=== PATIENT | male | born 1965 | race Caucasian/White ===

== ENCOUNTER 2018-02-17 01:59 | Emergency (ER) | payer SELFPAY ==
[2018-02-17 02:03] VITALS: TEMP 98.4
[2018-02-17] MEDS ORDERED: KETOROLAC 30 MG/ML 1 ML VIAL IVP STA (02:21)
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
[2018-02-17] MEDS ORDERED: DIPH,PERTUS(ACELL)TETVAC-LF 0.5 ML VIAL IM ONE (03:33)
[2018-02-17 04:49] VITALS: BP 162/78; PULSE 83; RESP 17
== END 2018-02-17 05:12 | disposition home or self-care (01) ==
LOC: EC 01:59
DX: T23.251A Burn of second degree of right palm, initial encounter (principal); T23.221A Burn of second degree of single right finger (nail) except thumb, initial encounter; Z23 Encounter for immunization; X19.XXXA Contact with other heat and hot substances, initial encounter; Y92.009 Unspecified place in unspecified non-institutional (private) residence as the place of occurrence of the external cause
CPT/HCPCS: 99284; 16020; 96374; 90471; 82075; 90715; J1885

== ENCOUNTER 2021-12-29 09:27 | Day surgery (SDC) | payer OTHER ==
[2021-11-08 17:00] VITALS: BMI 30.7
[~2021-12-29 09:27] MED LIST: LACTATED RINGERS 1,000 ML IV SCH
[2021-12-29 09:48] VITALS: RESP 16; TEMP 97.5
[2021-12-29] MEDS ORDERED: fentaNYL (PF) 50 MCG/ML 2 ML AMP ONE (10:03)
[2021-12-29] MEDS ORDERED: PROPOFOL 10 MG/ML 20 ML VIAL IV ONE (10:03)
[2021-12-29] MEDS ORDERED: MIDAZOLAM 2 MG/2 ML VIAL ONE (10:03)
--- NOTE | 2021-12-29 10:31 | P.PCN ---
Date of Procedure: 12/29/21 Procedure(s) Performed: BRIEF HISTORY: Patient is a 56-year-old pleasant white male scheduled for an elective colonoscopy as a part of screening for colorectal neoplasia. PROCEDURE PERFORMED: Colonoscopy snare polypectomy. PREOPERATIVE DIAGNOSIS:Screening for colon cancer. IV sedation per Anesthesia. PROCEDURE: After informed consent was obtained, the patient, was brought into the endoscopy unit. IV sedation was administered by Anesthesia under continuous monitoring. Digital rectal examination was normal. Initially the Olympus CF-160 flexible video colonoscope was then inserted in the rectum, gradually advanced into the cecum without any difficulty. Careful examination was performed as the scope was gradually being withdrawn. Ileocecal valve and the appendiceal orifice were visualized and appeared normal. Prep was excellent. Mucosa of the cecum appeared normal. In the ascending colon there was a 1.5 cm broad-based polyp removed by snare polypectomy. In the transverse colon there was a 7 mm polyp removed by snare polypectomy. In the descending colon there was a 5 mm sessile polyp removed by snare polypectomy. Rest of the, ascending colon, transverse colon, descending colon, sigmoid colon, and rectum appeared normal. There was a 3 mm polyp removed by snare polypectomy. Retroflexion was performed in the rectum and no lesions were seen. The patient tolerated the procedure well. IMPRESSION: 1.5 cm broad-based ascending colon polyp status post polypectomy 7 mm transverse colon polyp status post polypectomy 5 mm descending colon polyp status post polypectomy 3 mm rectal polyp status post polypectomy RECOMMENDATIONS: Findings of this examination were discussed with the patient as his family. He was advised tfollow with the biopsy results and if the biopsy is adenoma have a repeat colonoscopy in 3 years
[2021-12-29 11:04] VITALS: BP 144/82; PULSE 75
== END 2021-12-29 11:18 | disposition home or self-care (01) ==
LOC: ORWHC2ENDO 09:27
PROVIDERS: ATTEND Internal Medicine Gastroenterology
DX: Z12.11 Encounter for screening for malignant neoplasm of colon (principal); D12.2 Benign neoplasm of ascending colon; D12.4 Benign neoplasm of descending colon; D12.3 Benign neoplasm of transverse colon; G47.33 Obstructive sleep apnea (adult) (pediatric); F32.A Depression, unspecified; Z90.49 Acquired absence of other specified parts of digestive tract; Z98.890 Other specified postprocedural states; Z79.1 Long term (current) use of non-steroidal anti-inflammatories (NSAID); Z79.899 Other long term (current) drug therapy
CPT/HCPCS: 88305; 45385; J2250; J3010; J2704

== ENCOUNTER 2023-12-23 16:54 | Emergency (ER) | payer OTHER ==
[2023-12-23 17:13] VITALS: RESP 18; TEMP 98
[2023-12-23 17:47] LABS: Basophils # (A) 0.1 k/uL (0-0.2); Basophils % (A) 1 %; Eosinophils # (A) 0.3 k/uL (0-0.7); Eosinophils % (A) 4 %; HCT 41.1 % (39.0-53.0); Lymphocytes # (A) 1.7 k/uL (1.0-4.8); Lymphocytes % (A) 24 %; MCV 91.2 fL (80.0-100.0); Mean Platelet Volume 6.8; Monocytes # (A) 0.6 k/uL (0-1.0); Monocytes % (A) 8 %; Neutrophils # (A) 4.3 k/uL (1.3-7.7); Neutrophils % (A) 61 %; Platelet Count 300 k/uL (150-450); RDW 12.4 % (11.5-15.5)
[2023-12-23 17:53] LABS: ALT 19 U/L (4-49); AST 32 U/L (17-59); African American GFR (CKD) >90 (>60 ml/min/1.73 sqM); Albumin 4.6 g/dL (3.5-5.0); Alkaline Phosphatase 74 U/L (38-126); Anion Gap 7 mmol/L; Blood Urea Nitrogen 26 mg/dL (9-20); Calcium 9.9 mg/dL (8.4-10.2); Carbon Dioxide 26 mmol/L (22-30); Chloride 104 mmol/L (98-107); Glucose 87 mg/dL (74-99); Non-African American GFR(CKD) >90 (>60 ml/min/1.73 sqM); Potassium 4.6 mmol/L (3.5-5.1); Sodium 137 mmol/L (137-145); Total Bilirubin 0.6 mg/dL (0.2-1.3); Total Protein 7.4 g/dL (6.3-8.2)
--- NOTE | 2023-12-23 17:54 | XR ---
PROCEDURE: XR foot complete RT - 3V DATE AND TIME: 12/23/2023 5:44 PM CLINICAL INDICATION: PHH; great toe infection TECHNIQUE: Department protocol COMPARISON: None FINDINGS: There is evidence of soft tissue swelling about the great toe, but no radiopaque foreign benoit dy or soft tissue emphysema. The bones of the great toe and remaining skeletal structures of the right foot are negative for acute findings. IMPRESSION: Soft tissue swelling.
--- NOTE | 2023-12-23 18:17 | ED ---
Lower Extremity Injury HPI - General Source: patient, RN notes reviewed Mode of arrival: ambulatory Limitations: no limitations <Connie Haas - Last Filed: 12/23/23 18:16> - General Source: patient, RN notes reviewed Mode of arrival: ambulatory Limitations: no limitations <Avi Metz - Last Filed: 12/23/23 19:53> - General Chief Complaint: Extremity Injury, Lower Stated Complaint: foot pain Time Seen by Provider: 12/23/23 18:16 - History of Present Illness Initial Comments: Patient is a 58-year-old male presented to ER with a chief complaint of right foot pain. Patient injured it on 12-04-2023. Patient has been having increasing redness and swelling since . Denies any fevers or chills. (Connie Haas) Patient is a pleasant 58-year-old male present to the emergency department with right first MTP pain and swelling. Patient did have an injury a couple of weeks ago at work where he struck his toe on something. Patient states he struck the distal right great toe. Patient states only mild discomfort the day after that. Patient states discomfort started getting more severe about a week following that. Patient has been taking anti-inflammatories with mild improvement. No fever. Discomfort is limited to first MTP. Patient denies any cut or lacer ation. No history of similar symptoms previously. Patient was wearing footwear when he struck his toe on the distal toe. Patient was seen at urgent care prior to arrival. Patient did have recent white blood cell count and uric acid that were reported as normal (Avi Metz) - Related Data Home Medications Medication Instructions Recorded Confirmed Multivitamin [Multivitamins Adult 1 each PO DAILY 08/31/21 12/27/21 Gummies] PARoxetine HCL 30 mg PO HS 08/31/21 12/27/21 lisinopriL 40 mg PO HS 08/31/21 12/27/21 Ibuprofen [Motrin Ib] 400 mg PO Q8H PRN 11/08/21 12/27/21 Loratadine [Claritin] 10 mg PO DAILY PRN 11/08/21 12/27/21 Previous Rx's Medication Instructions Recorded Cephalexin [Keflex] 500 mg PO QID #40 cap 12/23/23 predniSONE [Deltasone] 40 mg PO DAILY #8 tab 12/23/23 Allergies Allergy/AdvReac Type Severity Reaction Status Date / Time No Known Allergies Allergy Verified 12/29/21 09:40 Review of Systems ROS Other: All systems not noted in ROS Statement are negative. <Connie Haas - Last Filed: 12/23/23 18:16> ROS Other: All systems not noted in ROS Statement are negative. Constitutional: Denies: fever, chills Eyes: Denies: eye pain ENT: Denies: ear pain Musculoskeletal: Reports: as per HPI Skin: Reports: as per HPI, rash <Avi Metz - Last Filed: 12/23/23 19:53> ROS Statement: Those systems with pertinent positive or pertinent negative responses have been documented in the HPI. Past Medical History Past Medical History: Hypertension, Sleep Apnea/CPAP/BIPAP Additional Past Medical History / Comment(s): Seasonal allergies. Not using CPAP. History of Any Multi-Drug Resistant Organisms: None Reported Past Surgical History: Appendectomy, Orthopedic Surgery Additional Past Surgical History / Comment(s): R knee surgery. Deviated septum, sinus surgery Past Anesthesia/Blood Transfusion Reactions: No Reported Reaction Past Psychological History: Depression Smoking Status: Former smoker Past Alcohol Use History: Daily Past Drug Use History: None Reported - Past Family History Mother Family Medical History: No Reported History <Connie Haas - Last Filed: 12/23/23 18:16> General Exam Limitations: no limitations <Connie Haas - Last Filed: 12/23/23 18:16> Limitations: no limitations General appearance: alert, in no apparent distress Head exam: Present: atraumatic Eye exam: Present: normal appearance Neck exam: Present: normal inspection Respiratory exam: Present: normal lung sounds bilaterally Cardiovascular Exam: Present: regular rate, normal rhythm GI/Abdominal exam: Present: soft. Absent: tenderness Extremities exam: Present: other (Right first MTP with swelling and erythema. Pain with range of motion. Distally the toe is neurovascular intact. There is mild warmth.) Neurological exam: Present: alert Psychiatric exam: Present: normal affect, normal mood Skin exam: Present: erythema (Right first MTP) <Avi Metz - Last Filed: 12/23/23 19:53> - General Exam Comments Initial Comments: Visual Physical Exam Vital signs reviewed General: Well-appearing, nontoxic, no acute distress. Head: Normocephalic, atraumatic Eyes: PERRLA, EOMI ENT: Airway patent Chest: Nonlabored breathing Skin: No visual rash, normal skin tone Neuro: Alert and oriented 3 Musculoskeletal: Edema to right ankle (Connie Haas) Course Vital Signs 12/23/23 16:57 Temperature 98.0 F Pulse Rate 82 Respiratory 18 Rate Blood Pressure 153/99 O2 Sat by Pulse 97 Oximetry Medical Decision Making - Lab Data Result diagrams: 12/23/23 17:05 12/23/23 17:05 <Connie Haas - Last Filed: 12/23/23 18:16> - Lab Data Result diagrams: 12/23/23 17:05 12/23/23 17:05 <Avi Metz - Last Filed: 12/23/23 19:53> - Medical Decision Making I performed the quick note portion of this chart. Electronically signed by Connie Haas PA-C (Connie Haas) Was pt. sent in by a medical professional or institution (RUDDY Kovacs, GLASS TECHNICIAN, urgent care, hospital, or correction...) When possible be specific @ -Patient was sent from occupational health Did you speak to anyone other than the patient for history (EMS, parent, family, police, friend...)? What history was obtained from this source @ -No Did you review nursing and triage notes (agree or disagree)? Why? @ -I reviewed and agree with nursing and triage notes Were old charts reviewed (outside hosp., previous admission, EMS record, old EKG, old radiological studies, urgent care reports/EKG's, correction records)? Report findings @ -Chart review from occupational health Differential Diagnosis (chest pain, altered mental status, abdominal pain women, abdominal pain men, vaginal bleeding, weakness, fever, dyspnea, syncope, headache, dizziness, GI bleed, back pain, seizure, CVA, palpatations, mental health, musculoskeletal)? @ -Differential Musculoskeletal Muscular strain, contusion, ligament sprain, fracture, arthritis, septic arthritis, bursitis, cellulitis, muscle spasm, nerve compression, DVT, arterial occlusion, herpes zoster, electrolyte abnormality, tumor.... This is not meant to be in all inclusive list EKG interpreted by me (3pts min.). @ -As above X-rays interpreted by me (1pt min.). @ -X-ray right foot shows soft tissue swelling CT interpreted by me (1pt min.). @ -None done U/S interpreted by me (1pt. min.). @ -None done What testing was considered but not performed or refused? (CT, X-rays, U/S, labs)? Why? @ -Consider uric acid however patient just had this done What meds were considered but not given or refused? Why? @ -None Did you discuss the management of the patient with other professionals (professionals i.e. , PA, GLASS TECHNICIAN, lab, RT, psych nurse, transition social worker, well servicing rig operator, teacher, trust officer, caser)? Give summary @ -No Was smoking cessation discussed for >3mins.? @ -No Was critical care preformed (if so, how long)? @ -No Were there social determinants of health that impacted care today? How? (Ho melessness, low income, unemployed, alcoholism, drug addiction, transportation, low edu. Level, literacy, decrease access to med. care, group home, rehab)? @ -No Was there de-escalation of care discussed even if they declined (Discuss DNR or withdrawal of care, Hospice)? DNR status @ -No What co-morbidities impacted this encounter? (DM, HTN, Smoking, COPD, CAD, Cancer, CVA, ARF, Chemo, Hep., AIDS, mental health diagnosis, sleep apnea, morbid obesity)? @ -None Was patient admitted / discharged? Hospital course, mention meds given and route, prescriptions, significant lab abnormalities, going to OR and other pertinent info. @ -Patient presents with right first MTP erythema swelling and pain. Symptoms did not start until several days after a contusion. No laceration or break in the skin. Patient has symptoms mostly consistent with gouty arthritis. Patient will be discharged with steroids and follow-up with orthopedics. Patient will be covered with antibiotics for unlikely but possible infectious process. Patient is advised to follow-up with orthopedics for further evaluation. Patie nt advised not to take anti-inflammatories while taking steroids. Undiagnosed new problem with uncertain prognosis? @ -No Drug Therapy requiring intensive monitoring for toxicity (Heparin, Nitro, Ins ulin, Cardizem)? @ -No Were any procedures done? @ -No Diagnosis/symptom? @ -Arthralgia Acute, or Chronic, or Acute on Chronic? @ -Acute Uncomplicated (without systemic symptoms) or Complicated (systemic symptoms)? @ -Default Side effects of treatment? @ -No Exacerbation, Progression, or Severe Exacerbation? @ -No Poses a threat to life or bodily function? How? (Chest pain, [place], [place], pneumonia, PE, COPD, DKA, ARF, appy, cholecystitis, CVA, Diverticulitis, Homicidal, Suicidal, threat to staff... and all critical care pts) @ -No (Avi Metz) - Lab Data Lab Results 12/23/23 12/23/23 Range/Units 17:05 17:05 WBC 7.0 (3.8-10.6) k/uL RBC 4.50 (4.30-5.90) m/uL Hgb 14.0 (13.0-17.5) gm/dL Hct 41.1 (39.0-53.0) % MCV 91.2 (80.0-100.0) fL MCH 31.0 (25.0-35.0) pg MCHC 34.0 (31.0-37.0) g/dL RDW 12.4 (11.5-15.5) % Plt Count 300 (150-450) k/uL MPV 6.8 Neutrophils % 61 % Lymphocytes % 24 % Monocytes % 8 % Eosinophils % 4 % Basophils % 1 % Neutrophils # 4.3 (1.3-7.7) k/uL Lymphocytes # 1.7 (1.0-4.8) k/uL Monocytes # 0.6 (0-1.0) k/uL Eosinophils # 0.3 (0-0.7) k/uL Basophils # 0.1 (0-0.2) k/uL Sodium 137 (137-145) mmol/L Potassium 4.6 (3.5-5.1) mmol/L Chloride 104 (98-107) mmol/L Carbon Dioxide 26 (22-30) mmol/L Anion Gap 7 mmol/L BUN 26 H (9-20) mg/dL Creatinine 0.87 (0.66-1.25) mg/dL Est GFR (CKD-EPI)AfAm >90 (>60 ml/min/1.73 sqM) Est GFR (CKD-EPI)NonAf >90 (>60 ml/min/1.73 sqM) Glucose 87 (74-99) mg/dL Calcium 9.9 (8.4-10.2) mg/dL Total Bilirubin 0.6 (0.2-1.3) mg/dL AST 32 (17-59) U/L ALT 19 (4-49) U/L Alkaline Phosphatase 74 (38-126) U/L Total Protein 7.4 (6.3-8.2) g/dL Albumin 4.6 (3.5-5.0) g/dL Disposition <Connie Haas - Last Filed: 12/23/23 18:16> Is patient prescribed a controlled substance at d/c from ED?: No Time of Disposition: 19:40 <Avi Metz - Last Filed: 12/23/23 19:53> Clinical Impression: Arthralgia Disposition: HOME SELF-CARE Condition: Stable Instructions (If sedation given, give patient instructions): Arthralgia (ED), Gout (ED) Additional Instructions: Please follow-up with orthopedics in the next 1 to 2 days for recheck. Return for increased pain or swelling, redness, fever, worsening or changing symptoms or other concerns. Prescriptions have been sent to pharmacy. Do not take anti- inflammatories with steroids. Prescriptions: predniSONE [Deltasone] 40 mg PO DAILY #8 tab Cephalexin [Keflex] 500 mg PO QID #40 cap Referrals: Lore Banda MD [Primary Care Provider] - 1-2 days Don Arreola MD [STAFF PHYSICIAN] - 1-2 days
[2023-12-23] MEDS: ACET/COD 300 MG/30 MG STARTER PACK 6 TAB BTL PO STA (20:01)
[2023-12-23] MEDS: predniSONE 50 MG TAB PO STA (20:02)
[2023-12-23 20:25] VITALS: BP 152/98; PULSE 91
== END 2023-12-23 20:08 | disposition home or self-care (01) ==
LOC: EC 16:54
DX: M79.671 Pain in right foot (principal); I10 Essential (primary) hypertension; G47.30 Sleep apnea, unspecified; F32.A Depression, unspecified; Z87.891 Personal history of nicotine dependence; Z79.899 Other long term (current) drug therapy
CPT/HCPCS: 36415; 80053; 85025; 73630; 99284; J7512

== ENCOUNTER → 2024-03-04 | Outpatient (CLI) | payer OTHER ==
--- NOTE | 2024-03-04 17:14 | XR ---
EXAMINATION TYPE: XR foot complete RT DATE OF EXAM: 03/04/2024 COMPARISON: 12/23/2023 HISTORY: Swelling near first metatarsal TECHNIQUE: 3 view right foot FINDINGS: There is prominence over the first metatarsophalangeal joint space soft tissues. Mild hallu x valgus deformity is present. No acute fracture or dislocation is evident. Plantar calcaneal heel sp ur is present. IMPRESSION: 1. Hallux valgus deformity. 2. Mild soft tissue prominence over the first metatarsal phalangeal joint space appears stable compar francy
== END | disposition home or self-care (01) ==
LOC: RADXRMAIN 16:05
PROVIDERS: ATTEND Emergency Medicine
DX: S90.31XD Contusion of right foot, subsequent encounter (principal); M20.11 Hallux valgus (acquired), right foot